=== PATIENT | female | born 1975 | race Caucasian/White ===

== ENCOUNTER 2016-11-08 15:13 | Emergency (ER) | payer MEDICAID ==
[~2016-11-08] VITALS: Wt 74.5 kg
[~2016-11-08 15:13] MED LIST: PREN1TAB49 PO
[2016-11-08 18:13] LABS: ADD SCAN DIFF NO
[2016-11-08 18:15] LABS: BASOPHIL # 0.1 10^3/ul (0.0-0.1); BASOPHILS % 0.4 % (0.0-2.0); EOSINOPHILS # 0.4 10^3/ul (0.0-0.5); EOSINOPHILS % 3.2 % (0.0-7.0); HEMATOCRIT 41.8 % (37.0-47.0); HEMOGLOBIN 13.6 g/dl (12.0-16.0); LYMPHOCYTES % 23.4 % (15.0-51.0); MEAN CORPUSCULAR HEMOGLOBIN 28.8 pg (29.0-33.0); MEAN CORPUSCULAR HGB CONC 32.5 g/dl (32.0-37.0); MEAN CORPUSCULAR VOLUME 88.6 fl (82.0-101.0); MEAN PLATELET VOLUME 10.4 fl (7.4-10.4); MONOCYTE # 0.7 10^3/ul (0.3-0.9); MONOCYTES % 5.7 % (0.0-11.0); NEUTROPHIL # 8.5 10^3/ul (1.6-7.5); PLATELET COUNT 251 10^3/UL (140-415); RED BLOOD COUNT 4.72 10^6/ul (4.20-5.40); RED CELL DISTRIBUTION WIDTH 13.8 % (11.5-14.5); WHITE BLOOD COUNT 12.6 10^3/ul (4.8-10.8)
[2016-11-08 18:22] LABS: ADD UMIC YES; URINE BILIRUBIN (Dip) NEGATIVE (NEGATIVE); URINE BLOOD (Dip) 1+ (NEGATIVE); URINE COLOR LT. YELLOW (YELLOW); URINE GLUCOSE (Dip) NEGATIVE (NEGATIVE); URINE KETONES (Dip) NEGATIVE (NEGATIVE); URINE LEUKOCYTE ESTERASE (Dip) NEGATIVE (NEGATIVE); URINE NITRITE (Dip) NEGATIVE (NEGATIVE); URINE TOTAL PROTEIN (Dip) NEGATIVE (NEGATIVE); URINE UROBILINOGEN (Dip) 0.2 E.U./dL (0.1-1.0)
--- NOTE | 2016-11-08 18:26 | RADRPT ---
PROCEDURE: First trimester obstetrical ultrasound. CLINICAL INDICATION: , pelvic pain, vaginal bleeding TECHNIQUE: Transabdominal reed scale and color Doppler ultrasound of the uterus . COMPARISON: None available FINDINGS: A single intrauterine gestation is present within the uterine fundus. No evidence of extrauterine gestation. Mean sac diameter: 3.32 cm [place]-rump length: 1.99 cm heart rate: 158 Beats per minute No evidence of subchorionic hemorrhage. Normal appearance of the right ovary. Left ovary not identified by the senior asset manager. Free fluid: None. IMPRESSION: Single intrauterine gestation with an estimated gestational age of 8 weeks 4 days by ultrasound toyat kelsie. No evidence of subchorionic hemorrhage or free fluid. RPTAT: AADD .Kris Whitney MD, Date Time Electronically viewed and signed by .Kris Whitney MD, on 11/08/2016 18:26 .B/
[2016-11-08 18:41] LABS: BACTERIA,URINE MODERATE; SQUAMOUS EPITHELIAL CELL,UR MODERATE
[2016-11-08] MEDS ORDERED: CETI10CA PO (19:39)
--- NOTE | 2016-11-08 20:17 | ERD ---
ER Documentation Chief Complaint Date/Time DATE: 11/08/16 TIME: 20:12 Chief Complaint VAG BLEED SINCE TODAY. 8 WKS PREG. NO DYSURIA. LOW BACK AND ABD PAIN HPI Patient is a 41-year-old female who presents to the ED with vaginal bleeding x 1 day. She states her last normal menstrual period was 09/07/17. She states that she had mild bleeding that started today. Denies pelvic pain, abdominal pain, nausea, vomiting or diarrhea. Denies back pain. Denies leg pain or swelling .Denies chest pain, shortness of breath or difficulty breathing. Denies urinary symptoms. Denies fever or chills. No other complaints. Patient has an OB doctor, unsure of name [facility] All systems reviewed and are negative except as per history of present illness. Medications Home Meds Active Scripts Cetirizine Hcl* (Zyrtec*) 10 Mg Capsule, 10 MG PO DAILY, #30 TAB.CHEW Prov:ANUM BAILON PA-C 11/08/16 Reported Medications Vits W-Ca,Fe,Fa(<1MG) () 1 Tab Tablet, 1 TAB PO D 06/05/12 [none] No Conflict Check 10/22/10 Allergies Allergies: Coded Allergies: No Known Allergies (Verified Allergy, Mild, 06/05/12) PMhx/Soc History of Surgery: No Anesthesia Reaction: No Hx Neurological Disorder: No Hx Respiratory Disorders: No Hx Cardiac Disorders: No Hx Psychiatric Problems: No Hx Miscellaneous Medical Probl: No Hx Alcohol Use: No Hx Substance Use: No Hx Tobacco Use: No Smoking Status: Never smoker FmHx Family History: No coronary disease, No diabetes, No other Physical Exam Vitals Vital Signs Date Time Temp Pulse Resp B/P Pulse Ox O2 Delivery O2 Flow Rate FiO2 11/08/16 15:16 97.9 91 20 119/65 98 Physical Exam GENERAL: Well-developed, well-nourished female. Appears in no acute distress. HEAD: Normocephalic, atraumatic. EYES: Pupils are equally reactive bilaterally. EOMs grossly intact. No conjunctival erythema. ENT: Moist mucous membranes. No uvula deviation. No kissing tonsils. No exudates. NECK: Supple. No lymphadenopathy or thyromegaly. No meningismus. negative kernig. negative brudinski. LUNG: Clear to auscultation bilaterally. No rhonchi, wheezing, rales or coarse breath sounds. HEART: Regular rate and rhythm. No murmurs, rubs or gallops. ABDOMEN: No scars, ecchymosis or rashes noted. Soft, nontender, and nondistended. Positive bowel sounds in all four quadrants. No rebound tenderness , no guarding. (-) McBurneys point tenderness. No CVA tenderness. BACK: No midline tenderness. SKIN: Normal color. Warm and dry. No rashes or lesions. Capillary refill < 2 seconds Result Diagram: 11/08/161804 Results 24 hrs Laboratory Tests Test 11/08/16 18:05 Basophils # 0.110^3/ul Basophils % 0.4% Beta HCG, Quantitative 338233.0mIU/ml Eosinophils # 0.410^3/ul Eosinophils % 3.2% Hematocrit 41.8% Hemoglobin 13.6g/dl Lymphocytes # 3.010^3/ul Lymphocytes % 23.4% Mean Corpuscular Hemoglobin 28.8pg Mean Corpuscular Hemoglobin Concent 32.5g/dl Mean Corpuscular Volume 88.6fl Mean Platelet Volume 10.4fl Monocytes # 0.710^3/ul Monocytes % 5.7% Neutrophils # 8.510^3/ul Neutrophils % 67.0% Nucleated Red Blood Cells # 0.010^3/ul Nucleated Red Blood Cells % 0.0/100WBC Platelet Count 42127^3/UL Red Blood Count 4.7210^6/ul Red Cell Distribution Width 13.8% Urine Bacteria MODERATE Urine Bilirubin NEGATIVE Urine Clarity CLEAR Urine Color LT. YELLOW Urine Glucose NEGATIVE% Urine Hemoglobin 1+ Urine Ketones NEGATIVE Urine Leukocyte Esterase NEGATIVE Urine Microscopic RBC 2-5/HPF Urine Microscopic WBC 0-2/HPF Urine Nitrite NEGATIVE Urine Specific [place] 1.015 Urine Squamous Epithelial Cells MODERATE Urine Total Protein NEGATIVE Urine Urobilinogen 0.2 E.U./dL Urine pH 6.0 White Blood Count 12.610^3/ul Procedures/MDM ER COURSE: I kept the patient and/or family informed of laboratory and diagnostic imaging results throughout the emergency room course. EKG, MONITORS, & DIAGNOSTIC IMAGING: [place] [id number] Radiology Main Line: [phone] DIAGNOSTIC IMAGING REPORT Patient: SORAYA WARNER : 1975 Age: 41 Sex: F MR #: [id number] DOS: 11/08/16 1748 Ordering MD: ANUM BAILON PA-C Location: [facility] Room/Bed: PROCEDURE: First trimester obstetrical ultrasound. CLINICAL INDICATION: , pelvic pain, vaginal bleeding TECHNIQUE: Transabdominal reed scale and color Doppler ultrasound of the uterus . COMPARISON: None available FINDINGS: A single intrauterine gestation is present within the uterine fundus. No evidence of extrauterine gestation. Mean sac diameter: 3.32 cm [place]-rump length: 1.99 cm heart rate: 158 Beats per minute No evidence of subchorionic hemorrhage. Normal appearance of the right ovary. Left ovary not identified by the breastfeeding educator. Free fluid: None. IMPRESSION: Single intrauterine gestation with an estimated gestational age of 8 weeks 4 days by ultrasound criteria. No evidence of subchorionic hemorrhage or free fluid. RPTAT: AADD .Kris Whitney MD, MD Date Time Electronically viewed and signed by .Kris Whitney MD, MD on 11/08/2016 18:26 .B/ CC: ANUM BAILON PA-C LAB INTERPRETATION: CBC showed white count of 12.6 or severe anemia. CMP showed no evidence of electrolyte abnormalities, severe acidosis, alkalosis, renal failure, or liver disease. Lipase showed no evidence of acute pancreatitis. UA showed no evidence of leukocytes, nitrites, 3+ hemoglobin BHC.0 RH: O+ MEDICAL DECISION MAKING: This is a 41-year-old female who is who presents with vaginal bleeding. Vital signs were reviewed. Patient is afebrile. Patient is not hypoxic. Patient is not toxic or ill-appearing. Ultrasound was read read by radiologist shows Single intrauterine gestation with an estimated gestational age of 8 weeks 4 days by ultrasound criteria. No evidence of subchorionic hemorrhage or free fluid. Low suspicion for ovarian torsion, PID, tuboovarian abscess, ectopic , bowel obstruction , pyelonephritis, UTI, appendicitis, cervicitis, septic , molar , HELLP syndrome, preeclampsia, eclampsia, placenta previa, placenta abruptia. Her slightly elevated white count of 12.6 is likely due to changes. DISCHARGE: At this time, patient is stable for discharge and outpatient management with no new complaints during the ER course. Patient was sent home with [facility] for allergies and to follow up with her OB doctor at [facility]. Patient will be discharged home with instructions to recheck for new or worsening symptoms such as fever, nausea, weakness, LOC and to follow up with primary care in the next 1-2 days. Patient was advised to return to the ER for any new or worsening symptoms. Plan was discussed and patient and/or family understands and agrees. Home instructions were given. Departure Diagnosis: Primary Impression: Vaginal bleeding in patient at less than 20 weeks ges... Condition: Stable Patient Instructions: Bleeding During Early Additional Instructions: Regrese a estas instalaciones dentro de DOS WELLS para un examen de seguimiento.Regrese antes si whelan condicin se empeora. ANUM BAILON PA-C Nov 08, 2016 20:17
[2016-11-08 20:29] VITALS: BP 133/62; PULSE 74; RESP 16
== END 2016-11-08 20:30 | disposition home or self-care (01) ==
LOC: FTE 15:13
DX: O20.9 Hemorrhage in early pregnancy, unspecified (principal); R10.2 Pelvic and perineal pain; Z3A.08 8 weeks gestation of pregnancy
CPT/HCPCS: 36415; 76801; 81001; 84702; 85025; 86900; 86901; Z7502; 81003

== ENCOUNTER 2017-03-10 10:52 | Outpatient (CLI) | payer MEDICAID ==
[~2017-03-10] VITALS: Ht 160 cm; Wt 79.6 kg
[~2017-03-10 10:52] MED LIST changes: +CETI10CA PO
[2017-03-10 11:13] VITALS: Ht 160 cm; Wt 79.6 kg
[2017-03-10 11:14] VITALS: BP 108/59; PULSE 77
[2017-03-10 12:03] LABS: ADD UMIC NO; UR ASCORBIC ACID NEGATIVE (NEGATIVE); UR BILIRUBIN (Dip) NEGATIVE (NEGATIVE); UR BLOOD (Dip) NEGATIVE (NEGATIVE); UR CLARITY CLEAR (CLEAR); UR COLOR YELLOW (YELLOW); UR GLUCOSE (Dip) NEGATIVE (NEGATIVE); UR KETONES (Dip) NEGATIVE (NEGATIVE); UR LEUKOCYTE ESTERASE (Dip) NEGATIVE Leu/ul (NEGATIVE); UR NITRITE (Dip) NEGATIVE (NEGATIVE); UR SPECIFIC GRAVITY (Dip) 1.013 (1.003-1.030); UR TOTAL PROTEIN (Dip) NEGATIVE (NEGATIVE); UR UROBILINOGEN (Dip) NEGATIVE (NEGATIVE)
--- NOTE | 2017-03-10 12:56 | RADRPT ---
AMENDMENT: 03/10/2017 3:29:58 PM Bijan Childs MD Transvaginal sonography of the cervix was performed. Cervical length is 2.6 cm. PROCEDURE: OB ultrasound for biophysical profile CLINICAL INDICATION: Biophysical profile. TECHNIQUE: Multiple sonographic images of the pelvis were obtained. Transabdominal view of the gr avid uterus are available for review. The images were reviewed on a PACS workstation. COMPARISON: 11/08/2016 FINDINGS: breathing movement = 2/2 tone = 2/2 motion = 2/2 Quantitative amniotic fluid volume = 2/2 MOOKIE = 23.2 cm Single live intrauterine with cardiac activity at 156 beats per minute. There is a anterior placenta without previa. IMPRESSION: 1. Single living intrauterine gestation in cephalic position. 2. Biophysical profile = 8/8. 3. MOOKIE = 23.2 cm. RPTAT: AACC .Bijan Childs MD, MD Date Time Electronically viewed and signed by .Bijan Childs MD, on 03/10/2017 15:30 .R/
--- NOTE | 2017-03-10 16:26 | QN ---
Documentation Comment iup 26 weeks co of abd cramping no lof good FM vss exam wnl US wnl cl>2.5 ua neg a/p iup 26 weeks false labor [place] PRATIBHA WILSON MD Mar 10, 2017 16:26
== END 2017-03-10 15:47 | disposition home or self-care (01) ==
LOC: OBT 10:52 → L-D 10:53 → OBT 15:47
PROVIDERS: ATTEND Obstetrics & Gynecology
DX: O47.03 False labor before 37 completed weeks of gestation, third trimester (principal); Z3A.26 26 weeks gestation of pregnancy
CPT/HCPCS: 76817; 76818; 81003; Z7500; G0463

== ENCOUNTER 2017-05-10 14:34 | Outpatient (CLI) | payer MEDICAID ==
[~2017-05-10] VITALS: Ht 160 cm; Wt 83.3 kg
[~2017-05-10 14:34] MED LIST changes: -CETI10CA PO
[2017-05-10 14:53] VITALS: Ht 160 cm; Wt 83.3 kg
[2017-05-10 14:54] VITALS: BP 103/54; PULSE 89; RESP 18
--- NOTE | 2017-05-10 15:41 | RADRPT ---
PROCEDURE: US OB biophysical profile. CLINICAL INDICATION: decreased movements, vaginal bleeding TECHNIQUE: Multiple sonographic images of the pelvis were obtained. The images were reviewed on a PACS workstation. COMPARISON: No prior studies are available for comparison. FINDINGS: There is a single viable intrauterine gestation. Cardiac activity is present with 161 beats per min [place]. There is a vertex presentation. The placenta is anterior. There is no evidence of placental abruption. There is a normal amount of amniotic fluid with an MOOKIE = 19.7 cm. Biophysical profile: movement 2/2 tone 2/2. breathing 2/2 MOOKIE 2/2 Total 04/19 RPTAT: AA . IMPRESSION: Normal biophysical profile. . .Cristobal Zhou MD, Date Time Electronically viewed and signed by .Cristobal Zhou MD, MD on 05/10/2017 15:40 .S/
--- NOTE | 2017-05-10 16:47 | PN ---
Triage Information Date/Time Reason for visit: Uterine contractions Weeks of Gestation 36+ /Para 4/2 Diabetes: none Hypertention: none Objective Vital Signs Date Time Temp Pulse Resp B/P Pulse Ox O2 Delivery O2 Flow Rate FiO2 05/10/17 14:54 98.4 89 18 103/54 96 Room Air Heart Rate: 140's Contractions: < 5 Minutes Apart Disposition: Discharge Assessment/Plan patient needs to receive IV hydration when no cervical change and contractions subside she can be discharged with precautions NOBLE ARRIOLA M.D. May 10, 2017 16:47
[2017-05-10] MEDS ORDERED: LACTATED RINGER'S 1,000 ML IV ONE (17:00)
--- NOTE | 2017-05-10 18:39 | TRIAGE ---
OB Triage Datetime Report Generated by CPN: 05/10/2017 18:39 Datetime: 05/10/2017 18:34 Vaginal Exam Dilatation (cms): 2.5 Effacement (%): 50 Station: -2 Exam By: KHEMANI Vaginal Bleeding: None Cervix, Consistency: Moderate Cervix, Position: Posterior Datetime: 05/10/2017 18:00 Stage of : OB Triage Maternal Assessment Level of Consciousness: Fully Conscious Labor Evaluation Frequency: 4-6 Monitor Mode: External Duration (sec)2399: 70-200 Quality: Mild Resting Tone Evans: Relaxed Heart Rate FHR Baseline Rate: 145 Monitor Mode: External US Variability: Moderate 6-25 bpm Accelerations: 15X15 Decelerations: None Pain Assessment Pain Scale: 0 Pain Goal: 3 Membrane Status: Intact Vaginal Bleeding: None Datetime: 05/10/2017 17:00 Stage of : OB Triage Maternal Assessment Level of Consciousness: Fully Conscious Labor Evaluation Frequency: 1-7 Monitor Mode: External Duration (sec)2399: 30-100 Quality: Mild Resting Tone Evans: Relaxed Heart Rate FHR Baseline Rate: 135 Monitor Mode: External US Variability: Moderate 6-25 bpm Accelerations: 15X15 Decelerations: None Pain Assessment Pain Scale: 0 Pain Goal: 3 Membrane Status: Intact Vaginal Bleeding: None Datetime: 05/10/2017 16:10 Vaginal Exam Dilatation (cms): 2.0 Effacement (%): 50 Station: -3 Exam By: khemani Vaginal Bleeding: None Cervix, Consistency: Moderate Cervix, Position: Posterior Datetime: 05/10/2017 15:59 Stage of : OB Triage Maternal Assessment Level of Consciousness: Fully Conscious Labor Evaluation Frequency: 2-4 Monitor Mode: External Duration (sec)2399: 60-90 Quality: Mild Resting Tone Evans: Relaxed Heart Rate FHR Baseline Rate: 145 Monitor Mode: External US Variability: Moderate 6-25 bpm Accelerations: 15X15 Decelerations: None Category: Category I Pain Assessment Pain Scale: 0 Pain Goal: 3 Membrane Status: Intact Vaginal Bleeding: None Datetime: 05/10/2017 14:51 Assessment Type: Triage Maternal Assessment Level of Consciousness: Fully Conscious DTR's/Clonus: DTRs 2+; No Clonus Headache: Denies Blurred Vision: No Respiratory Effort: Unlabored; Regular Rhythm; Equal Expansion Breath Sounds, Left: Clear and Equal Breath Sounds, Right: Clear and Equal Nausea/Vomiting: Denies RUQ Epigastric Pain: Denies Lower Extremities Edema: None Degree: None Upper Extremities Edema: None Degree: None Facial Edema: None Fall Risk Assessment History of Falling: (0) No Secondary Diagnosis: (0) No Ambulatory Aid: (0) Bedrest/Nurse Assist IV Therapy: (0) No Gait: (0) Normal/Bedrest/Immobile Mental Status: (0) Oriented to Own Ability Fall Score: 0 Fall Risk Score Definition: No Risk: No action required Datetime: 05/10/2017 14:49 Time of Arrival: 05/10/2017 14:30 EGA: 35.0 Arrived By: Wheelchair Arrived From: Office Chief Complaint: pt sent in for C/O SPOTTING Movement: Present Contractions: Denies/Absent Rupture of Membranes: Denies Vaginal Bleeding: None Vaginal Discharge: Denies Recent Sexual Intercouse: Denies Abdominal Trauma: Not Applicable Patient Complaints: None Time Provider Notified: 05/10/2017 15:06 Provider Notified: ESHAGHIAN Initial Plan: EFM, BPP. T_S Datetime: 05/10/2017 14:47 Monitor Mode: External Monitor Mode: External US Datetime: 03/10/2017 15:36 Stage of : OB Triage Datetime: 03/10/2017 15:25 Stage of : OB Triage Datetime: 03/10/2017 15:02 Labor Evaluation Frequency: 0 Monitor Mode: External Resting Tone Evans: Relaxed Heart Rate FHR Baseline Rate: 145 Monitor Mode: External US Variability: Moderate 6-25 bpm Decelerations: None Category: Category I Pain Assessment Pain Scale: 0 Pain Presence: None/Denies Pain Type: N/A Pain Goal: 3 Pain Relief Measures: Comfort Measures Datetime: 03/10/2017 14:08 Labor Evaluation Frequency: 0 Monitor Mode: External Resting Tone Evans: Relaxed Heart Rate FHR Baseline Rate: 150 Monitor Mode: External US Variability: Moderate 6-25 bpm Decelerations: None Category: Category I Pain Assessment Pain Scale: 0 Pain Presence: None/Denies Pain Type: N/A Pain Goal: 3 Pain Relief Measures: Comfort Measures Datetime: 03/10/2017 13:00 Labor Evaluation Frequency: 0 Monitor Mode: External Resting Tone Evans: Relaxed Heart Rate FHR Baseline Rate: 145 Monitor Mode: External US Variability: Moderate 6-25 bpm Decelerations: None Pain Assessment Pain Scale: 0 Pain Presence: None/Denies Pain Type: N/A Pain Goal: 3 Pain Relief Measures: Comfort Measures Datetime: 03/10/2017 12:01 Labor Evaluation Frequency: 0 Monitor Mode: External Resting Tone Evans: Relaxed Heart Rate FHR Baseline Rate: 150 Monitor Mode: External US Variability: Moderate 6-25 bpm Decelerations: None Pain Assessment Pain Scale: 0 Pain Presence: None/Denies Pain Type: N/A Pain Goal: 3 Pain Relief Measures: Comfort Measures Datetime: 03/10/2017 11:46 Stage of : OB Triage Datetime: 03/10/2017 11:10 Stage of : OB Triage Assessment Type: Triage Maternal Assessment Level of Consciousness: Fully Conscious DTR's/Clonus: DTRs 2+; No Clonus Headache: Denies Blurred Vision: No Respiratory Effort: Unlabored; Regular Rhythm; Equal Expansion Breath Sounds, Left: Clear and Equal Breath Sounds, Right: Clear and Equal Nausea/Vomiting: Denies RUQ Epigastric Pain: Denies Facial Edema: None Temperature Route: Axillary Fall Risk Assessment History of Falling: (0) No Secondary Diagnosis: (0) No Ambulatory Aid: (0) Bedrest/Nurse Assist IV Therapy: (0) No Gait: (0) Normal/Bedrest/Immobile Mental Status: (0) Oriented to Own Ability Fall Score: 0 Fall Risk Score Definition: No Risk: No action required Labor Evaluation Frequency: APPLIED Monitor Mode: External Resting Tone Evans: Relaxed Heart Rate FHR Baseline Rate: 150 Monitor Mode: External US Variability: Moderate 6-25 bpm Pain Assessment Pain Scale: 7 Pain Presence: Intermittent Pain Type: Cramping Pain Location: Abdomen; Perineum Pain Goal: 3 Pain Relief Measures: Comfort Measures Datetime: 03/10/2017 11:07 Time of Arrival: 03/10/2017 10:46 EGA: 26.2 Arrived By: Ambulatory Arrived From: Home Chief Complaint: C/O ABDOMINAL CRAMPING, DENIES BLEEDING OR LEAKING Movement: Present Contractions: Occasional Rupture of Membranes: Denies Vaginal Discharge: Denies Recent Sexual Intercouse: Denies Abdominal Trauma: Not Applicable Time Provider Notified: 03/10/2017 11:45 Provider Notified: [email or web address] Initial Plan: MONITOR, BPP, CL, U/A
== END 2017-05-10 18:45 | disposition home or self-care (01) ==
LOC: OBT 14:34 → L-D 14:34 → OBT 18:45
PROVIDERS: ATTEND Obstetrics & Gynecology
DX: O26.893 Other specified pregnancy related conditions, third trimester (principal); Z3A.36 36 weeks gestation of pregnancy; R10.9 Unspecified abdominal pain
CPT/HCPCS: 36415; 76818; 86850; 86900; 86901; J7120; Z7500; G0463

== ENCOUNTER 2017-06-10 10:27 | Inpatient (IN) | END 2017-06-13 14:05 | disposition home or self-care (01) | DRG 794 | DX: P03.82 Meconium passage during delivery (principal); O70.1 Second degree perineal laceration during delivery; Z37.0 Single live birth; O69.81X0 Labor and delivery complicated by cord around neck, without compression, not applicable or unspecified; Z3A.39 39 weeks gestation of pregnancy ==